=== PATIENT | female | born 1980 | race Caucasian/White ===

== ENCOUNTER → 2016-07-10 | Outpatient (CLI) | payer BC ==
[~2016-07-10] MED LIST: PRENTAB65 PO; VALA500T60 PO
== END | disposition home or self-care (01) ==
LOC: C.LABSPEC 10:54
PROVIDERS: ATTEND Obstetrics & Gynecology
DX: Z34.03 Encounter for supervision of normal first pregnancy, third trimester (principal)

== ENCOUNTER 2016-08-08 08:20 | Outpatient (CLI) | payer BC ==
[~2016-08-08] VITALS: Ht 172.7 cm; Wt 108.0 kg
[2016-08-08 09:35] VITALS: Ht 172.7 cm; Wt 108.0 kg
[2016-08-08] MEDS ORDERED: VALA500T60 PO ×2 (09:37)
[2016-08-08] MEDS ORDERED: PRENTAB65 PO ×2 (09:37)
== END 2016-08-08 11:15 | disposition home or self-care (01) ==
LOC: C.OPB 08:20 → C.LD 08:21 → C.OPB 11:15
PROVIDERS: ATTEND Obstetrics & Gynecology
DX: Z34.03 Encounter for supervision of normal first pregnancy, third trimester (principal); Z3A.40 40 weeks gestation of pregnancy

== ENCOUNTER 2016-08-08 18:50 | Inpatient (IN) | payer BC ==
[~2016-08-08] VITALS: Ht 170.2 cm; Wt 108.2 kg
[2016-08-08] MEDS ORDERED: LACTATED RINGER'S 1000ML 1,000 ML IV PRN (19:09)
[2016-08-08 19:11] VITALS: Ht 170.2 cm; Wt 108.2 kg
[2016-08-08] MEDS ORDERED: FENTANYL CITRATE INJ 50 MCG/1 ML 2 ML VIAL ONE (19:14)
[2016-08-08] MEDS ORDERED: EpHEDrine SULFATE INJ 50 MG/ML AMP ONE (19:14)
[2016-08-08] MEDS ORDERED: BUPIVACAINE 0.25% 30 ML VIAL ONE (19:14)
[2016-08-08] MEDS ORDERED: FENTANYL 2MCG/ML ROPIV 1.25MG/ML 100ML BAG EPI ONE (19:15)
[2016-08-08 19:27] LABS: HEMATOCRIT 37.7 % (37-47); MEAN CELL VOLUME 86.9 fL (80-100); MEAN CORPUSCULAR HEMOGLOBIN 30.2 pg (25-34); MEAN CORPUSCULAR HGB CONC 34.7 g/dl (32-36); MEAN PLATELET VOLUME 9.9 fL (7.4-10.4); PLATELET COUNT 251 K/uL (130-400); RED BLOOD COUNT 4.34 M/uL (4.2-5.4); WHITE BLOOD COUNT 15.89 K/uL (4.8-10.8)
[2016-08-08] MEDS ORDERED: PENICILLIN G POTASSIUM IV 6 MU in DEXTROSE 5% 250ML 250 ML IV ONE (19:30)
[2016-08-08] MEDS: LACTATED RINGER'S 1000ML 1,000 ML IV SCH (20:20)
[2016-08-08] MEDS ORDERED: LACTATED RINGER'S 1000ML 500 ML IV PRN ×2 (20:38→20:46)
[2016-08-08] MEDS ORDERED: NALOXONE HCL INJ 1 MG in SODIUM CHLORIDE 0.9% 1000ML 1,000 ML IV PRN (20:38)
[2016-08-08] MEDS ORDERED: PROMETHAZINE HCL INJ 6.25 MG in SODIUM CHLORIDE 0.9% 50ML 50 ML IV PRN (20:45)
[2016-08-08] MEDS ORDERED: NALOXONE HCL INJ 0.4 MG/1 ML VIAL/CARP IV PRN (20:45)
[2016-08-08] MEDS ORDERED: EpHEDrine SULFATE INJ 50 MG/ML AMP IV PRN (20:45)
[2016-08-08] MEDS ORDERED: ONDANSETRON INJ 2 MG/ML 2 ML VIAL IV PRN (20:45)
[2016-08-08] MEDS ORDERED: NALBUPHINE HCL INJ 10 MG/ML AMP IV PRN (20:45)
[2016-08-08] MEDS ORDERED: DiphenhydrAMINE HCL 50 MG/ML VIAL IV PRN (20:45)
[2016-08-08] MEDS ORDERED: OXYTOCIN 30 UNITS/500ML NSS IV PRN (21:00)
[2016-08-08] MEDS: PENICILLIN G POTASSIUM IV 3 MU in DEXTROSE 5% 100ML 100 ML IV PRN (23:34)
[2016-08-09] MEDS ORDERED: CALCIUM CARBONATE 500 MG CHEWABLE ONE (02:09)
[2016-08-09] MEDS: LACTATED RINGER'S 1000ML 1,000 ML IV SCH (02:12)
[2016-08-09] MEDS ORDERED: NURSING VERBAL MED ORDER ONE (02:15)
[2016-08-09] MEDS: PENICILLIN G POTASSIUM IV 3 MU in DEXTROSE 5% 100ML 100 ML IV PRN ×2 (03:22→06:56)
[2016-08-09] MEDS: FENTANYL 2MCG/ML ROPIV 1.25MG/ML 100ML BAG EPI PRN ×2 (04:32→06:54)
[2016-08-09] MEDS ORDERED: LANOLIN OINT EXT PRN ×2 (07:30)
[2016-08-09] MEDS ORDERED: ACETAMINOPHEN/CODEINE 300/30MG TAB PO PRN ×2 (07:30)
[2016-08-09] MEDS ORDERED: DIPHTHERIA/TETANUS/PERTUSSIS 0.5 ML SYR/VIAL IM. ONE (07:30)
[2016-08-09] MEDS ORDERED: HYDROCORTISONE ACETATE 25 MG SUPP PR PRN (07:30)
[2016-08-09] MEDS ORDERED: BENZOCAINE 20% AER SPR 82.5 GM CAN EXT PRN (07:30)
[2016-08-09] MEDS ORDERED: SUPERCREAM 0.870 % 15GM JAR EXT PRN (07:30)
[2016-08-09] MEDS ORDERED: OXYTOCIN 30 UNITS/500ML NSS IV PRN (07:30)
[2016-08-09] MEDS: IBUPROFEN 600 MG TAB PO PRN ×3 (08:04→20:29)
[2016-08-09] MEDS: FERROUS SULFATE 325 MG TAB PO SCH (10:37)
[2016-08-09] MEDS: DOCUSATE SODIUM 100 MG CAP PO SCH ×2 (10:37→19:18)
[2016-08-09] MEDS: PRENATAL VITAMIN TAB PO SCH (10:37)
[2016-08-09 11:10] VITALS: BP 108/73; PULSE 99; TEMP 36.6
[2016-08-09 15:00] VITALS: BP 106/71; PULSE 103; TEMP 36.7
[2016-08-09] MEDS ORDERED: CALCIUM CARBONATE 500 MG CHEWABLE PO PRN (15:15)
--- NOTE | 2016-08-09 15:45 | DELIVERY SUMMARY ---
DATE OF OPERATION: 08/09/2016 FINDINGS: Viable female with Apgars of 8 and 9. Baby delivered spontaneously over a midline second-degree laceration. Cord gases and cord blood samples obtained. Placenta delivered spontaneously. Laceration repaired with 4-0 and 2-0 Vicryl in a routine fashion. Estimated blood loss 300 mL. LABOR NOTE: The patient is a 36-year-old 1, para 0 with an EDC of 07 August who was admitted at 40+ weeks gestational for labor check. The patient was admitted on 08 August, she had been discharged home earlier in the morning for prodromal labor. She stated that contractions had increased in intensity. She denied rupture of membranes or vaginal bleeding. Her course has been remarkable for isolated elevated blood pressures, not felt to be gestational hypertension. 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 No evidence of an outbreak. The patient's blood type O positive, antibody negative, rubella immune, hepatitis B negative. She declined a quad screen. She had normal 1 hour Glucola x2 and a positive 3rd trimester beta strep culture. Upon admission, patient was 3 cm dilated, 90% effaced, -2 station, magali regularly, uncomfortable. There were large ketones in the urine. There was some blood in her urine also and had +3 protein, but her blood pressure was 124/72 and she was not felt to be preeclamptic. The patient had an IV started, was aggressively hydrated and Anesthesia was consulted and an epidural was placed. After patient's penicillin dosage was in, she had her artificial rupture of membranes for clear fluid. An intrauterine pressure catheter was placed and Pitocin was initiated for spaced contractions. Over the next 6 to 7 hours, patient progressed to full dilatation. The vertex was high and patient had no sensation to push, and she labored down for approximately 1-1/2 hour and then began her second stage. She pushed for approximately 1-1/2 hour, delivering a viable female with description as above. Cord was clamped and cut. Cord gases and cord blood samples obtained. Placenta delivered spontaneously. Inspection of the perineum showed a midline second degree laceration, this was repaired with 4-0 and 2-0 Vicryl in a routine fashion. Estimated blood loss was 300 mL. Sponge and needle count was correct. I attest to the content of the Intraoperative Record and any orders documented therein. Any exceptio ns are noted below.
[2016-08-09 19:25] VITALS: BP 104/70; PULSE 98; TEMP 36.7
[2016-08-10 00:10] VITALS: BP 125/80; PULSE 97; TEMP 36.4
[2016-08-10] MEDS: IBUPROFEN 600 MG TAB PO PRN ×4 (00:21→20:07)
[2016-08-10 04:30] VITALS: BP 103/70; PULSE 78; TEMP 36.5
--- NOTE | 2016-08-10 06:56 | Progress Note ---
Subjective August 10, 2016. Subjective conversation w/ patient, physical exam, lab review Ambulation: ambulating normally Voiding: no voiding problems Passing Gas: Yes Diet Tolerance: Regular Diet Lochia: Moderate Feeding Type: Breast Feeding Pain: cramps, improves with med Comment: Patient was seen at the bedside. No acute event overnight. Review of Systems Constitutional: No fever Respiratory: No cough, No shortness of breath Cardiac: No chest pain Breast: No breast lump Abdomen: No nausea, No pain, No vomiting Female : No dysuria, No urinary frequency Denies headache Objective Vital Signs Date Time Temp Pulse Resp B/P Pulse Ox O2 Delivery O2 Flow Rate FiO2 08/10/16 04:30 36.5 78 16 103/70 Room Air 08/10/16 00:10 36.4 97 18 125/80 Room Air 08/10/16 00:10 Room Air 08/09/16 19:25 36.7 98 18 104/70 Room Air 08/09/16 15:00 Room Air 08/09/16 15:00 36.7 103 18 106/71 Room Air 08/09/16 11:10 Room Air 08/09/16 11:10 36.6 99 18 108/73 Room Air Physical Exam General Appearance: WELL-APPEARING, WD/WN, NO APPARENT DISTRESS Respiratory/Chest: chest non-tender, lungs clear, normal breath sounds, no respiratory distress Cardiovascular: regular rate, rhythm Abdomen: normal bowel sounds, non tender, soft Fundus: Firm, Relation to Umbilicus (1cm below U) Extremities: non-tender, no calf tenderness, + pedal edema Laboratory Results Last 24 Hours Test 08/10/16 06:05 Hemoglobin 11.8 g/dL Hematocrit 34.0 % Medications Current Inpatient Medications Medications (Trade) Dose Ordered Sig/Komal Route Start Time Stop Time Status Last Admin Dose Admin Oxytocin (Pitocin IV) 30 units UD PRN IV 08/09/16 07:30 09/08/16 07:29 Benzocaine (Dermoplast Aero Spr) 1 appln PRN PRN EXT 08/09/16 07:30 09/08/16 07:29 08/09/16 10:58 1 APPLN Cocaine HCl (Supercream 0.870% Cr) BID PRN EXT 08/09/16 07:30 08/23/16 07:29 Hydrocortisone Acetate (Anusol Hc Supp) 25 mg BID PRN [place] 08/09/16 07:30 09/08/16 07:29 Lanolin (Lanolin Oint) PRN PRN EXT 08/09/16 07:30 09/08/16 07:29 Prenat Multivit/ [place]/Iron/Folic Ac ( Vitamin Tab) 1 tab DAILY PO 08/09/16 08:00 09/08/16 07:59 08/09/16 10:37 1 TAB Ibuprofen (Motrin Tab) 600 mg Q4H PRN PO 08/09/16 07:30 09/08/16 07:29 08/10/16 00:21 600 MG Acetaminophen/ Codeine Phosphate (Tylenol w/ Codeine #3 Tab) 1 tab Q4H PRN PO 08/09/16 07:30 09/08/16 07:29 Acetaminophen/ Codeine Phosphate (Tylenol w/ Codeine #3 Tab) 2 tab Q4H PRN PO 08/09/16 07:30 09/08/16 07:29 Bisacodyl (Dulcolax Tab) 5 mg 20 PO 08/10/16 20:00 08/10/16 20:01 Docusate Sodium (coLACE CAP) 100 mg BID PO 08/09/16 08:00 09/08/16 07:59 08/09/16 19:18 100 MG Ferrous Sulfate (Feosol Tab) 325 mg DAILY PO 08/09/16 08:00 09/08/16 07:59 08/09/16 10:37 325 MG Calcium Carbonate (Tums Chew Tab) 500 mg Q4H PRN PO 08/09/16 15:15 09/08/16 15:14 08/09/16 20:28 500 MG Assessment and Plan Post- Day#: 1 Continue Routine Care: A/P: This is a 36 y/o female, , s/p normal vaginal delivery. She is ambulating and clinically stable. Plan: - Vitals signs are reviewed and WNL (Tmax 36.7 ) - Last Hgb is 11.8 - Blood type O+, GBS positive, Rubella Immune - Routine care - Encourage ambulation, monitor and control pain with medication as needed , continue with regular diet as tolerated and monitor lochia - Stool softeners and sitz bath recommended - Encourage breast feeding and educate about breast feeding Resident Physician Supervision Note: I interviewed and examined the patient. Discussed with Dr. Godoy and agree with findings and plan as documented in the note. Any exceptions or clarifications are listed here: [None] Documented By: Chris Tuttle
[2016-08-10 08:15] VITALS: BP 114/76; PULSE 97; TEMP 36.8; O2SAT 98
[2016-08-10] MEDS: PRENATAL VITAMIN TAB PO SCH (08:58)
[2016-08-10] MEDS: FERROUS SULFATE 325 MG TAB PO SCH (08:58)
[2016-08-10] MEDS: DOCUSATE SODIUM 100 MG CAP PO SCH ×2 (09:53→20:06)
[2016-08-10 16:15] VITALS: BP 113/77; PULSE 95; TEMP 36.5; O2SAT 100
[2016-08-10] MEDS ORDERED: BISACODYL 5 MG TABEC PO SCH (20:00)
[2016-08-11 00:22] VITALS: BP 110/76; PULSE 87; TEMP 36.4; O2SAT 98
[2016-08-11] MEDS: IBUPROFEN 600 MG TAB PO PRN ×2 (00:22→06:31)
--- NOTE | 2016-08-11 07:24 | Discharge Instructions ---
Discharge Instructions Date of Service August 10, 2016. Admission Reason for Admission: Check Labor Discharge Discharge Diagnosis / Problem: s/p vaginal delivery Discharge Goals Goal(s): Routine recovery after delivery Medications Continue Dispensed Medications: supercream, dermaplast, tucks, lansinoh Activity Recommendations Activity Limitations: as noted below . Instructions / Follow-Up Instructions / Follow-Up ACTIVITY RECOMMENDATIONS: * Gradual return to full activity over the next 2-3 weeks. * No lifting - nothing heavier than baby over the next 2-3 weeks. * Do not engage in vigorous exercise, sexual activity or sports until cleared by your physician. * Do not drive or operate any motorized equipment until cleared by your physician. * You may shower/bathe daily. MEDICATIONS: For discomfort or pain, you may use Acetaminophen (Tylenol), Ibuprofen (Advil), or Naproxen (Aleve) following the package directions. For constipation you may use Colace following the package directions. BREAST CARE: If you are not breast feeding: * Wear a supportive bra 24 hours a day for one to two weeks. * Avoid stimulating your breasts and nipples as much as possible during the first few weeks after delivery. * When taking a shower, have the warm water hit your back, not breasts. * When your breasts feel full, apply ice packs. Usually three to four times a day helps ease the discomfort. * Take a mild pain medication (Tylenol / Motrin) when you are uncomfortable. If breast feeding: * Use breast milk to lubricate nipples. Lansinoh cream may be used for sore nipples. You do not need to remove cream prior to breast feeding. If using a different brand of cream, check the label for directions regarding removal of cream prior to nursing. * Wear a supportive bra. * If having problems with breasts or breast feeding, call a small business consultant or your health care provider. EPISIOTOMY CARE: After delivery, if you have an episiotomy (stitches), the following steps will ease discomfort and aid healing. * For the first 24 hours after delivery, place ice packs next to your episiotomy to help reduce swelling. * After the first 24 hour-period, sitz baths, either portable or in the tub, are suggested. A shower with a shower arm sprayed over the episiotomy may be comforting. * Dilia care should be done after each voiding and bowel movement. Squirt warm water from a plastic bottle over the perineum (region of the body between the anus and urinary opening) and pat dry. * Use Dermoplast to ease discomfort. Shake container. [place] directly over the episiotomy. Place a Tucks on a clean sanitary pad next to your episiotomy. SPECIAL CARE INSTRUCTIONS: When you are discharged from the hospital, it is important for you to follow the instructions listed below: * During the first week at home, you should be able to care for yourself and your baby. In addition, the usual light household activities are encouraged. * Limit your activities to the way you feel. Do not try to clean the house or move furniture. Be sensible. * If you actively engage in sports and have done so up until the time of your delivery, you may resume these activities as soon as you feel able. This may take up to one month or even longer. Use good judgment. * Continue to take your vitamins for at least six weeks after the of your baby. * Your diet need not be limited unless you were on a special diet before your delivery. Breast-feeding mothers need around 2500 calories per day and at least 64-80 ounces of fluid per day (8 to 10 glasses). * You should eat foods from the four major food groups. Crash diets or fad diets are to be avoided. Eating lean meats, fresh fruits and vegetables, low-fat dairy products, high fiber foods and a regular exercise program, will help you get back to your pre- weight without putting your health at risk. * Constipation is sometimes a problem after delivery. Take a mild laxative as needed. If breast feeding, Milk of Magnesia is acceptable to use. You may use a suppository or Fleets enema if no episiotomy. * A daily shower or tub bath is suggested. Be sure to thoroughly and gently dry the perineum. * A bloody vaginal discharge will usually continue until around four weeks post . A small amount of bleeding may continue for as long as six weeks. Vaginal discharge changes from the bright red bleeding after delivery to pink then brownish and finally yellowish-pink before becoming white and disappearing. * Bleeding may increase with activity. Your first period may come in 4-8 weeks. If you are breast feeding, your period may be delayed even longer. * [place] (sex) can begin whenever both you and your partner feel comfortable and do not have any form of genital infection. It is recommended that you wait at least six weeks for internal and external healing to occur. If you have questions, please talk to your health care practitioner. A condom should be used to prevent infection and . * Foreplay, gentle intercourse and lubrication is very important the first several times to prevent pain. A water-based lubricant such as K-Y jelly or Astroglide may be used. * If you have RH negative blood and your baby is RH positive, you will receive RHOGAM by injection prior to discharge. The nurse will give you a card to keep with you that has the date and place that you received RHOGAM after delivery. * During your care, you had a Rubella screen done to check for the presence of rubella antibodies in your blood. If your test was negative, you will receive a Rubella vaccine prior to discharge. This vaccine may cause a fever, soreness at the injection site and flu-like symptoms. If these symptoms persist, notify your health care practitioner. is not advised for one month after a Rubella vaccine. * Verbalizes understanding of car seat law as reviewed with patient nursing. * Car Seat hand-out given and reviewed with patient by nursing. * Shaken baby information reviewed with patient by nursing. Call you doctor if: * Heavy bleeding (saturating several pads an hour) or passing clots the size of your fist. * A fever >101 degrees F (38.3 degrees C) on two occasions four hours apart and /or chills. * Unusual pain in the pelvic or vaginal areas. * "Baby Blues" lasting longer than two weeks. If you have any questions or concerns, call your health care practitioner at . FOLLOW UP VISIT: * Please call the office at to schedule a 6 week examination. It is important you keep this appointment. It is important for you to make arrangements for either yearly or twice yearly check-ups thereafter. Current Hospital Diet Patient's current hospital diet: Regular OB Diet Discharge Diet Recommended Diet: Regular Diet Pending Studies Studies pending at discharge: no Medical Emergencies . Who to Call and When: Medical Emergencies: If at any time you feel your situation is an emergency, please call [phone] immediately. . Non-Emergent Contact Non-Emergency issues call your: Doughnut Dough Mixer Call Non-Emergent contact if: you have a fever, temperature is above 101 . . "Provider Documentation" section prepared by Lina Godoy. . VTE Core Measure Inpt VTE Proph given/why not?: Treatment not indicated
--- NOTE | 2016-08-11 07:27 | Progress Note ---
Subjective August 11, 2016. Subjective conversation w/ patient, physical exam, lab review Ambulation: ambulating normally Voiding: no voiding problems Passing Gas: Yes Diet Tolerance: Regular Diet Lochia: Small Feeding Type: Breast Feeding Pain: improves with med Comment: Patient was seen at the bedside. No acute event overnight. Review of Systems Constitutional: No fever Respiratory: No cough, No dyspnea at rest, No dyspnea on exertion, No shortness of breath Cardiac: No chest pain Breast: No breast lump Abdomen: No nausea, No pain, No vomiting Female : No dysuria, No urinary frequency Denies headache Objective Vital Signs Date Time Temp Pulse Resp B/P Pulse Ox O2 Delivery O2 Flow Rate FiO2 08/11/16 00:22 Room Air 08/11/16 00:22 36.4 87 16 110/76 98 Room Air 08/10/16 16:15 36.5 95 16 113/77 100 Room Air 08/10/16 16:15 100 Room Air 08/10/16 08:15 Room Air 08/10/16 08:15 36.8 97 18 114/76 98 Room Air Physical Exam General Appearance: WELL-APPEARING, WD/WN, NO APPARENT DISTRESS Respiratory/Chest: chest non-tender, lungs clear, normal breath sounds, no respiratory distress Cardiovascular: regular rate, rhythm Abdomen: normal bowel sounds, non tender, soft Fundus: Firm, Relation to Umbilicus (about 1 cm below U) Extremities: non-tender, no calf tenderness (improving), + pedal edema Medications Current Inpatient Medications Medications (Trade) Dose Ordered Sig/Komal Route Start Time Stop Time Status Last Admin Dose Admin Oxytocin (Pitocin IV) 30 units UD PRN IV 08/09/16 07:30 09/08/16 07:29 Benzocaine (Dermoplast Aero Spr) 1 appln PRN PRN EXT 08/09/16 07:30 09/08/16 07:29 08/09/16 10:58 1 APPLN Cocaine HCl (Supercream 0.870% Cr) BID PRN EXT 08/09/16 07:30 08/23/16 07:29 Hydrocortisone Acetate (Anusol Hc Supp) 25 mg BID PRN [place] 08/09/16 07:30 09/08/16 07:29 Lanolin (Lanolin Oint) PRN PRN EXT 08/09/16 07:30 09/08/16 07:29 Prenat Multivit/ [place]/Iron/Folic Ac ( Vitamin Tab) 1 tab DAILY PO 08/09/16 08:00 09/08/16 07:59 08/10/16 08:58 1 TAB Ibuprofen (Motrin Tab) 600 mg Q4H PRN PO 08/09/16 07:30 09/08/16 07:29 08/11/16 06:31 600 MG Acetaminophen/ Codeine Phosphate (Tylenol w/ Codeine #3 Tab) 1 tab Q4H PRN PO 08/09/16 07:30 09/08/16 07:29 Acetaminophen/ Codeine Phosphate (Tylenol w/ Codeine #3 Tab) 2 tab Q4H PRN PO 08/09/16 07:30 09/08/16 07:29 Docusate Sodium (coLACE CAP) 100 mg BID PO 08/09/16 08:00 09/08/16 07:59 08/10/16 20:06 100 MG Ferrous Sulfate (Feosol Tab) 325 mg DAILY PO 08/09/16 08:00 09/08/16 07:59 08/10/16 08:58 325 MG Calcium Carbonate (Tums Chew Tab) 500 mg Q4H PRN PO 08/09/16 15:15 09/08/16 15:14 08/09/16 20:28 500 MG Assessment and Plan Post- Day#: 2 Continue Routine Care: A/P: This is a 36 y/o female, , s/p normal vaginal delivery. She is ambulating and clinically stable to discharge. - Vital signs are reviewed and WNL (Tmax 36.7 ) - Last Hgb 11.8 - Blood type O+, GBS positive, Rubella Immune - No signs of depression. - Routine care - Discussed resting, feeding, pain control, mastitis, control, follow up in 6 weeks and reasons to call sooner, if necessary. - Continue with pain medication as needed, and continue vitamins. - Encourage breast feeding and educate about breast feeding - Patient understands and keen for home. - Plan to discharge home Resident Physician Supervision Note: I interviewed and examined the patient. Discussed with Dr. Godoy and agree with findings and plan as documented in the note. Any exceptions or clarifications are listed here: D/c instructions reviewed. Documented By: Sheila Cardona
[2016-08-11 08:00] VITALS: BP 126/78; PULSE 96; TEMP 36.5; O2SAT 99
[2016-08-11] MEDS: FERROUS SULFATE 325 MG TAB PO SCH (08:35)
[2016-08-11] MEDS: DOCUSATE SODIUM 100 MG CAP PO SCH (08:35)
[2016-08-11 10:45] VITALS: BP_DIAS 78; PULSE 96; TEMP 36.5
== END 2016-08-11 10:48 | disposition home or self-care (01) | DRG 774 ==
LOC: C.LD 18:50 → C.OPB 18:50 → C.LD 19:10 → C.OPB 19:10 → C.OBG 08-09 12:27
PROVIDERS: ADMIT Obstetrics & Gynecology; ATTEND Obstetrics & Gynecology
PROC: 10E0XZZ Delivery of Products of Conception, External Approach (ICD-10-PCS; principal; 2016-08-09)
PROC: 0HQ9XZZ Repair Perineum Skin, External Approach (ICD-10-PCS; principal; 2016-08-09)
DX: O99.824 Streptococcus B carrier state complicating childbirth (principal); O98.52 Other viral diseases complicating childbirth; O70.1 Second degree perineal laceration during delivery; B00.9 Herpesviral infection, unspecified; Z37.0 Single live birth; Z3A.40 40 weeks gestation of pregnancy; Z79.899 Other long term (current) drug therapy

== ENCOUNTER 2018-11-01 16:26 | Inpatient (IN) ==
[2018-11-01] MEDS ORDERED: OXYTOCIN 30 UNITS/500 ML BAG IV PRN ×2 (18:10→19:38)
[2018-11-01] MEDS ORDERED: LACTATED RINGER'S 1,000 ML IV PRN (18:10)
[2018-11-01] MEDS ORDERED: BUPIVACAINE 0.25% 30 ML VIAL ONE (18:24)
[2018-11-01] MEDS ORDERED: ePHEDrine sulfate 50 MG/ML AMP ONE (18:24)
[2018-11-01] MEDS ORDERED: fentaNYL citrate 100 MCG/2 ML VIAL ONE (18:24)
[2018-11-01] MEDS ORDERED: fentaNYL 2MCG/ML ROPIV 1.25MG/ML 100 ML BAG EPI ONE (18:25)
[2018-11-01 18:29] LABS: Hematocrit (blood only) 37.7 % (37-47); Hemoglobin 13.4 g/dL (12.0-16.0); Mean Corpuscular Volume 88.7 fL (80-100); Mean Platelet Volume 9.6 fL (7.4-10.4); Platelet Count 207 K/uL (130-400); RDW Coefficient of Variation 12.9 % (11.5-14.5); RDW Standard Deviation 41.3 fL (36.4-46.3); Red Blood Count 4.25 M/uL (4.2-5.4); White Blood Count 12.69 K/uL (4.8-10.8)
--- NOTE | 2018-11-01 18:29 | History & Physical Report ---
Date of Service November 01, 2018 Assessment & Plan (1) Supervision of elderly multigravida: Admit to L&D. Labs, EFM/[place], IV. Epidural when she desires. Anticipate . History of Present Illness Chief Complaint: Spontaneous labor Primary Care Provider: ADDISON PCP 38yo @ 39 5/7 presents with worsening ctx. + movement, no vaginal bleeding, no leaking of fluid. Ctx every few minutes. complicated by HSV - taking valtrex since 36w, no current symptoms. Also has been doing NSTs weekly since 36w due to advanced maternal age. Allergies Allergy/AdvReac Type Severity Reaction Status Date / Time shellfish derived Allergy Intermediate reports Verified 11/01/18 16:42 "severe nausea/vomiting" acetaminophen AdvReac Intermediate nausea Verified 11/01/18 16:42 Home Medications Home Medications Medication Instructions Recorded Confirmed Type 1 tab PO DAILY 10/26/18 11/01/18 History vitamin,calcium,uigjzcbq-xzee-cluzu acid tablet valacyclovir [Valtrex] 500 mg PO DAILY 11/01/18 11/01/18 History Patient History Family History Father Atrial fibrillation Grandmother (Paternal) Breast cancer Grandmother (Maternal) Malignant neoplasm of uterus Mother Hypercholesterolemia Social History Preferred Language: Hebrew Seismic Computer Required: No Beliefs That Will Affect Care: None marital status: Current Living Situation: Family Current Living Situation Comment: and 2 yo daughter Feels Safe at Home: Yes Safety Concerns: Feels Safe At This Time Smoking Status: Never smoker Hx Alcohol Use: No Hx Substance Use: No Review of Systems All systems reviewed & are unremarkable except as noted in HPI & below Physical Exam Physical Exam: Gen: AAOx3 very uncomfortable CV: RRR L: CTAB ABD: Soft, gravid, NTTP. Ext: tr edema SVE 6/100/0, bulging membranes FHT Cat 1, reactive [place] Q 2 Results & Data Vital Signs (Past 12 Hours) Vital Signs Temp Pulse Resp BP Pulse Ox 11/01/18 18:21 114 H 96 11/01/18 16:36 112 H 137/79 11/01/18 16:34 36.9 C 18
--- NOTE | 2018-11-01 18:35 | Anesthesiology Consultation ---
Date of Service November 01, 2018 Assessment & Plan (1) Encounter for pre-operative examination: Chart Review Chart Review: Acceptable Risk for Labor Epidural History Height/Weight Height: 5 ft 7 in Weight: 104.326 kg Allergies Allergy/AdvReac Type Severity Reaction Status Date / Time shellfish derived Allergy Intermediate reports Verified 11/01/18 16:42 "severe nausea/vomiting" acetaminophen AdvReac Intermediate nausea Verified 11/01/18 16:42 Medications Home Medications Medication Instructions Recorded Confirmed Last Taken 1 tab PO DAILY 10/26/18 11/01/18 11/01/18 07:00 vitamin,calcium,dpdtzhwc-upfk-fhnlz acid tablet valacyclovir [Valtrex] 500 mg PO DAILY 11/01/18 11/01/18 11/01/18 07:00 Active Medications Generic Name Dose Route Start Last Admin Trade Name Freq PRN Reason Stop Dose Admin Lactated Ringer's 1,000 mls @ 125 mls/hr 11/01/18 18:10 11/01/18 18:15 Lr IV 11/03/18 18:09 999 mls/hr .Q8H PRN Administration L&D Protocol Protocol Past Medical History Medical History Elevated BP without diagnosis of hypertension History of herpes genitalis Past Family History Family History Father Atrial fibrillation Grandmother (Paternal) Breast cancer Grandmother (Maternal) Malignant neoplasm of uterus Mother Hypercholesterolemia Past Surgical History Surgical History H/O oral surgery Status post lymph node biopsy Social History Smoking Status: Never smoker Hx Alcohol Use: No Hx Substance Use: No substance use type: does not use Physical Exam Vital Signs Last Vital Signs Temp 36.9 C 11/01/18 16:34 Pulse 137 H 11/01/18 18:31 Resp 18 11/01/18 16:34 BP 137/79 11/01/18 16:36 Pulse Ox 97 11/01/18 18:31 Testing Laboratory Results 11/01/18 18:19
[2018-11-01 18:58] LABS: Mean Corpuscular Hgb Conc 35.5 g/dL (32-36)
--- NOTE | 2018-11-01 19:30 | Delivery Summary ---
Vaginal Delivery Summary Date of Service November 01, 2018 Vaginal Delivery Summary Vaginal Delivery Summary: Pre-delivery diagnoses: 38yo @ 39 5/7, spontaneous labor, HSV, advanced maternal age Post-delivery diagnoses: same, partial 3rd degree perineal laceration Procedure: spontaneous vaginal delivery, repair of 3rd degree perineal laceration Surgeon: Ness Davis DO Complications: none Findings: Viable male . Apgars: 8/10 . Weight pending, please see nursery records. Estimated blood loss: 300ml Description of delivery: The patient presented for a labor check, walked the halls, and then moved into active labor quickly. She suddenly began to feel increased pressure while ambulating in the hallway, and cervix exam revealed 8cm dilation, 100% effacement, and 1+ station. She felt strong urge to push, and while she was hoping for epidural, there was not time to get this prior to delivery. AROM performed for clear fluid, and she pushed with one contraction while bale breaker operator's hand retracted the cervix around the head. After this one con traction, she was completely dilated, and 2+ station. She then continued to push. She spontaneously vaginally delivered a viable from the cephalic presentation. The head delivered in SHADE position. The anterior shoulder delivered, followed by the posterior shoulder, followed by the body. No nuchal cord. The baby was placed on mother's abdomen and a spontaneous cry was heard. Delayed cord clamping was employed, and the cord was doubly clamped and cut. Cord blood was obtained. The placenta was delivered spontaneously intact with a 3-vessel cord. The uterus and vagina were swept of clots and debris. IV pitocin was given. The uterus became firm. 1% lidocaine, 10ml, was infused at the perineum for local anesthesia. The cervix, vagina, and perineum were inspected and a partial 3rd degree perineal laceration was noted. It extended through the top edge of the anal sphincter muscle. The edge of muscle was brought together with a [id number] suture of 3-0 chromic. The remaining laceration was reapproximated with 3-0 vicryl in standard fashion. Excellent hemostasis was observed. The mother and baby are recovering in stable and good condition in the room. Sponge, needle, and instrument counts were correct x 2. Ness Davis DO [facility] [place]
[2018-11-01] MEDS ORDERED: ACETAMINOPHEN 325 MG TAB PO PRN (19:38)
[2018-11-01] MEDS ORDERED: BISACODYL 10 MG SUPP PR PRN (19:38)
[2018-11-01] MEDS ORDERED: SUPERCREAM 0.870% 15 GM JAR EXT PRN (19:38)
[2018-11-01] MEDS ORDERED: DIPHTHERIA/TETANUS/PERTUSSIS 0.5 ML SYR/VIAL IM ONE (19:38)
[2018-11-01] MEDS ORDERED: HYDROCORTISONE ACETATE 25 MG SUPP PR PRN (19:38)
[2018-11-01] MEDS ORDERED: BENZOCAINE 20% AER SPR 82.5 GM CAN EXT PRN (19:38)
[2018-11-01] MEDS ORDERED: OXYCODONE/ACETAMINOPHEN 5mg/325mg TAB PO PRN (19:38)
[2018-11-01] MEDS ORDERED: IBUPROFEN 600 MG TAB PO ONE (19:40)
[2018-11-01] MEDS: DOCUSATE SODIUM 100 MG CAP PO SCH (22:52)
[2018-11-01] MEDS: IBUPROFEN 600 MG TAB PO PRN (23:26)
[2018-11-02] MEDS: IBUPROFEN 600 MG TAB PO PRN ×4 (04:30→21:42)
[2018-11-02 06:50] LABS: Hematocrit (blood only) 36.3 % (37-47); Hemoglobin 12.5 g/dL (12.0-16.0); Mean Corpuscular Hgb Conc 34.4 g/dL (32-36); Mean Corpuscular Volume 90.5 fL (80-100); Mean Platelet Volume 9.8 fL (7.4-10.4); Platelet Count 205 K/uL (130-400); RDW Coefficient of Variation 12.9 % (11.5-14.5); RDW Standard Deviation 42.3 fL (36.4-46.3); Red Blood Count 4.01 M/uL (4.2-5.4)
--- NOTE | 2018-11-02 07:19 | Obstetrical Progress Note ---
Date of Service <Kymberly Dominguez MD - Last Filed: 11/02/18 07:19> November 02, 2018 Assessment & Plan <Kymberly Dominguez MD - Last Filed: 11/02/18 07:19> (1) Encounter for care and examination after delivery: Doing well today. Tolerating PO diet and fluids, ambulating well. No concerns or questions today. Discussed discharge instructions; to go home today. Follow up in [address] Davis. Subjective <Kymberly Dominguez MD - Last Filed: 11/02/18 07:19> Ambulation: ambulating normally Voiding: no voiding problems Passing Gas:: Yes Diet Tolerance:: regular diet Feeding Type:: breast feeding Current Pain Level(1-10): 0 Constitutional: no fever, no chills and no fatigue Respiratory: no cough and no dyspnea No shortness of breath Cardiovascular: no chest pain, no syncope, no edema and no calf pain Breast: no breast pain Gastrointestinal: no abdominal pain, no nausea, no vomiting, no cramping, no constipation and no diarrhea/loose stools Genitourinary (female): no dysuria and no difficulty urinating Neurologic: no headache(s) Physical Exam <Kymberly Dominguez MD - Last Filed: 11/02/18 07:19> Constitutional well developed and well nourished Respiratory normal respiratory effort; no respiratory distress, no labored breathing and no cough Auscultation: no crackles, no rales, no rhonchi and no wheezes Cardiovascular Rate/Rhythm: regular rate and regular rhythm Heart Sounds: no gallop, no murmur and no cardiac rub Extremities: no pedal edema Gastrointestinal (Abdomen) Inspection/Auscultation: + abdomen distended and normal bowel sounds Percussion/Palpation: + abdomen tender and abdomen soft; no guarding Genitourinary Uterus firm, palpable at umbilicus, no tenderness to palpation. Results & Data <Kymberly Dominguez MD - Last Filed: 11/02/18 07:19> Vital Signs (Past 12 Hours) Vital Signs Temp Pulse Pulse Resp BP BP Pulse Ox 11/02/18 04:32 36.5 C 87 16 105/70 97 11/02/18 00:32 36.5 C 96 H 16 112/73 98 11/01/18 21:30 37.2 C 108 H 18 124/65 11/01/18 21:21 108 H 124/65 11/01/18 21:16 120 H 127/58 L 11/01/18 21:06 37.2 C 103 H 18 118/66 11/01/18 20:56 105 H 123/67 11/01/18 20:46 105 H 125/72 11/01/18 20:37 109 H 129/98 11/01/18 20:36 18 11/01/18 20:26 115 H 118/58 L 11/01/18 20:16 107 H 127/58 L 11/01/18 20:09 18 11/01/18 20:06 108 H 122/70 11/01/18 19:56 108 H 123/64 11/01/18 19:51 18 11/01/18 19:46 100 H 125/70 11/01/18 19:45 18 11/01/18 19:36 103 H 18 138/66 11/01/18 19:26 103 H 123/72 11/01/18 19:21 18 <Ness Davis DO - Last Filed: 11/02/18 07:45> Co-Signing Physician Notes Resident Physician Supervision Note: I interviewed and examined the patient. Discussed with Dr. Dominguez and agree with findings and plan as documented in the note. Any exceptions or clarifications are listed here: PPD#1 doing well, desires DC home. Instructions reviewed. Followup 6w PP Documented By: Ness Davis DO
[2018-11-02] MEDS: DOCUSATE SODIUM 100 MG CAP PO SCH ×2 (08:15→20:31)
[2018-11-02] MEDS: PRENATAL VITAMIN 1 TAB PO SCH (08:15)
[2018-11-02] MEDS ORDERED: NON-FORMULARY MEDICATION (Prenat.Vits,Cal,Min-Iron-Folic 1 TAB) PO SCH (09:00)
[2018-11-02] MEDS ORDERED: BISACODYL 5 MG TABEC PO SCH (20:00)
[2018-11-03] MEDS: IBUPROFEN 600 MG TAB PO PRN (04:46)
[2018-11-03] MEDS: PRENATAL VITAMIN 1 TAB PO SCH (08:07)
[2018-11-03] MEDS: DOCUSATE SODIUM 100 MG CAP PO SCH (08:07)
--- NOTE | 2018-11-03 08:37 | Obstetrical Progress Note ---
Date of Service November 03, 2018 Assessment & Plan (1) Encounter for care and examination after delivery: continue current care plan discharge to home follow up in 6 weeks Day #:: 2 Subjective Ambulation: ambulating normally Voiding: no voiding problems Passing Gas:: Yes Diet Tolerance:: regular diet Lochia:: Small Feeding Type:: breast feeding Current Pain Level(1-10): 2 Review of Systems All systems reviewed & are unremarkable except as noted in HPI & below Physical Exam Constitutional WD/WN, vitals as above Genitourinary OB Exam Abdomen: + fundal height Fundus: + firm and + relation to umbilicus (2 below U) no calf tenderness Results & Data Vital Signs (Past 12 Hours) Vital Signs Temp Pulse Resp BP 11/02/18 23:30 98.1 F 80 18 110/70
[2018-11-03 09:04] LABS: Hematocrit (blood only) 36.1 % (37-47); Hemoglobin 12.4 g/dL (12.0-16.0)
== END 2018-11-03 12:00 | disposition home or self-care (01) | DRG 807 ==
LOC: OPB 16:26 → 4S1 16:29 → 4S2 22:23